=== PATIENT | female | born 2000 | race Caucasian/White ===

== ENCOUNTER 2020-01-30 01:18 | Emergency (ER) | payer MEDICAID ==
[~2020-01-30] VITALS: Ht 160 cm; Wt 89.8 kg
[2020-01-30 01:27] VITALS: Ht 160 cm; Wt 89.8 kg
[2020-01-30 03:39] VITALS: BP 105/65
== END 2020-01-30 03:39 | disposition home or self-care (01) ==
LOC: ED 01:18
DX: T78.40XA Allergy, unspecified, initial encounter (principal); X58.XXXA Exposure to other specified factors, initial encounter
CPT/HCPCS: J2930; J7040; Q0163